=== PATIENT | female | born 1940 | race Caucasian/White ===

== ENCOUNTER → 2019-03-07 | Outpatient (CLI) | payer MEDICARE ==
[~2019-03-07] MED LIST: AMLO5TAB2 PO; BENA20TA2 PO; CHOL100084 PO; LVF500T PO; METF-144 PO; MTR500T PO; OMEP20CA12 PO; PRAV40TA PO; VITAMIN B12 PO
--- NOTE | 2019-03-07 09:30 | Diagnostic Imaging Report ---
Indication: Right hip pain. Time of exam 8:36 AM 2 views right hip are obtained. Femoral acetabular alignment is normal. There are some mild osteoarthritic changes of the right hip. Femoral head and neck are intact. No fractures are seen. Rami are intact. Impression: Mild degenerative changes. No acute bony abnormality is detected. Dictated by: Dictated on workstation # [id number]
== END ==
LOC: RAD 07:47
PROVIDERS: ATTEND Internal Medicine
DX: M16.11 Unilateral primary osteoarthritis, right hip (principal); R73.03 Prediabetes; E78.00 Pure hypercholesterolemia, unspecified; I10 Essential (primary) hypertension
CPT/HCPCS: 73502

== ENCOUNTER → 2019-06-11 | Outpatient (CLI) | payer MEDICARE ==
--- NOTE | 2019-06-11 15:29 | Diagnostic Imaging Report ---
PROCEDURE: MRI left joint lower extremity without contrast. TECHNIQUE: Multiplanar, multisequence non contrast-enhanced MRI of the left lower extremity was accomplished. INDICATION: Knee pain, popping. FINDINGS: There is intrasubstance degenerative signal involving the medial greater than lateral menisci without linear or linda tear. No meniscal separation. The anterior and posterior cruciate ligaments are intact. The patellar and quadriceps tendons are intact. There is a small knee joint effusion without loose body. There is tricompartmental osteoarthritis without full-thickness articular cartilage defect. The medial and lateral collateral ligament complex components crossing the knee joint are intact. There is no solid or cystic mass within the popliteal fossa. No bone contusion or fracture. IMPRESSION: Osteoarthritis, joint effusion, and meniscal degeneration. Dictated by: Dictated on workstation # [id number]
== END ==
LOC: RAD 07:45
PROVIDERS: ATTEND Nurse Practitioner Family
DX: M17.12 Unilateral primary osteoarthritis, left knee (principal); M25.462 Effusion, left knee; M25.362 Other instability, left knee
CPT/HCPCS: 73721

== ENCOUNTER → 2020-02-06 | Outpatient (CLI) | payer MEDICARE ==
--- NOTE | 2020-02-06 17:06 | Diagnostic Imaging Report ---
INDICATION: Fall with right wrist pain. TIME OF EXAM: 2:24 p.m. EXAMINATION: Three views of the right wrist were obtained. FINDINGS: There appears to be a fracture of the distal radius. Very slight dorsal displacement of the distal fracture fragment is seen. Distal ulna is intact. Carpus is unremarkable apart from degenerative changes at the 1st CMC joint. Metacarpals are unremarkable. IMPRESSION: Distal radius fracture. Results were given to Dr. Fitzgerald at 5:05 p.m., by wendie. Dictated by: Dictated on workstation # [id number]
== END ==
LOC: RAD 14:00
PROVIDERS: ATTEND Internal Medicine
DX: S52.501A Unspecified fracture of the lower end of right radius, initial encounter for closed fracture (principal); S50.311A Abrasion of right elbow, initial encounter; W19.XXXA Unspecified fall, initial encounter
CPT/HCPCS: 73110

== ENCOUNTER → 2020-06-23 | Outpatient (CLI) | payer MEDICARE | LOC: RAD 14:30 | PROVIDERS: ATTEND Internal Medicine | DX: M80.031 Age-related osteoporosis with current pathological fracture, right forearm (principal) ==

== ENCOUNTER → 2021-02-04 | Outpatient (CLI) | payer MEDICARE ==
--- NOTE | 2021-02-04 12:30 | Diagnostic Imaging Report ---
INDICATION: Lumbago. COMPARISON: None FINDINGS: Frontal, lateral, and oblique radiographic views of the lumbar spine were obtained. There is slight levoscoliotic deformity epicentered at L1. There is also slight grade 1 retrolisthesis at L2-L3. There is no evidence of jumped facets. Vertebral body heights are maintained. There is no evidence acute fracture. There are multilevel degenerative changes consistent with intervertebral disc height loss with endplate sclerotic change and osteophyte formations. These changes appear greatest at the T12-L1 and L5-S1 levels. Included small bowel loops are nondistended. IMPRESSION: 1. No acute fracture or dislocation in the lumbar spine. 2. Moderate multilevel degenerative changes. Dictated by: Dictated on workstation # [id number]
== END ==
LOC: RAD 12:03
PROVIDERS: ATTEND Internal Medicine
DX: M47.817 Spondylosis without myelopathy or radiculopathy, lumbosacral region (principal)
CPT/HCPCS: 72110

== ENCOUNTER 2022-08-04 12:33 | Emergency (ER) | payer MEDICARE ==
[2022-08-04] MEDS ORDERED: LIDOCAINE 1% INJ 20 ML VIAL IJ STA (12:57)
[2022-08-04] MEDS ORDERED: TETANUS,DIPTH,PERTUSS P/F (BOOSTRIX) 0.5 ML VIAL IM ONE (13:00)
--- NOTE | 2022-08-04 13:18 | ED Fall/Injury ---
General Chief Complaint: Laceration Stated Complaint: HEAD LACERATION Nursing Triage Note: PT TO RM 8 WITH AMY SANCHEZ AND FAMILY WITH C/O HEAD LAC AFTER MOVING A CHAIR OFF HER PORCH AND FALLING DOWN ONE STAIR AND HIT A WOODEN FENCE. PT DENIES LOC Source: patient Exam Limitations: no limitations History of Present Illness Date Seen by Provider: Aug 04, 2022 Time Seen by Provider: 12:40 Initial Comments Here with report of fall at home. She was walking down her steps and missed the last step and fell forward and hit her head on the picket fence. No loss of consciousness but did note bleeding. She then drove her self to her primary care doctor's office (Dr. Fitzgerald). Bleeding was fairly pronounced. Dr. Fitzgerald and his then drove the patient here while holding pressure on her head. She denies neck pain. Last tetanus shot greater than 5 years. She denies other injury or concern. She is not on blood thinners. Occurred: just prior to arrival (Approximately 30 minutes ago) Severity: moderate Injuries/Pain Location: head Context: tripped Loss of Consciousness: no loss of consciousness Associated Symptoms (Fall): No Abdominal Pain, No Chest Pain; Headache; No Muscle Spasms, No Neck Pain, No Shortness of Air, No Trouble Walking Allergies and Home Medications Allergies Coded Allergies: Sulfa (Sulfonamide Antibiotics) (Unverified Allergy, Unknown, 01/22/15) Patient Home Medication List Home Medication List Reviewed: Yes Amlodipine Besylate (Amlodipine Besylate) 5 Mg Tablet, 5 MG PO DAILY, (Reported) Entered as Reported by: SUE LUGO on 01/23/15 0908 Benazepril Hcl (Benazepril Hcl) 20 Mg Tablet, 20 MG PO DAILY, (Reported) Entered as Reported by: SUE LUGO on 01/23/15 0908 Cholecalciferol (Vitamin D) 1,000 Unit Tab, 1,000 UNIT PO DAILY, (Reported) Entered as Reported by: SUE LUGO on 01/23/15 0910 Levofloxacin (Levaquin Tablet) 500 Mg Tab, 500 MG PO DAILY@11 Prescribed by: MARCELO HOFF on 01/25/15 1144 Metformin Hcl (Metformin Hcl) 500 Mg Tab.sr.24h, 500 MG PO BID, (Reported) Entered as Reported by: SUE LUGO on 01/23/15907 Metronidazole (Metronidazole) 500 Mg Tab, 500 MG PO TID Prescribed by: MARCELO HOFF on 01/25/15 1144 Omeprazole (Omeprazole) 20 Mg Capsule.dr, 20 MG PO DAILY, (Reported) Entered as Reported by: SUE LUGO on 01/23/15907 Pravastatin Sodium (Pravachol) 40 Mg Tablet, 40 MG PO HS, (Reported) Entered as Reported by: SUE LUGO on 01/23/15907 [Vitamin B12] , 1 TAB PO HS, (Reported) Entered as Reported by: SUE LUGO on 01/23/15909 Review of Systems Review of Systems Constitutional: see HPI; No chills, No fever Ears, Nose, Mouth, Throat: no symptoms reported Respiratory: No cough, No short of breath Cardiovascular: No chest pain, No palpitations Gastrointestinal: No nausea, No vomiting Musculoskeletal: No back pain, No neck pain Skin: change in color, lesions Psychiatric/Neurological: No Symptoms Reported Past Gihmogf-Addzfb-Acfboh Hx Patient Social History Tobacco Use?: No Use of E-Cig and/or Vaping dev: No Substance use?: No Alcohol Use?: No Pt feels they are or have been: No Immunizations Up To Date Tetanus Booster (TDap): Unknown Influenza Vaccine Up-to-Date: Yes; Up-to-Date Past Medical History Surgery/Hospitalization HX: HTN, SPINAL STENOSIS, HLD Surgeries: Yes Bladder Surgery, Hysterectomy, Oophorectomy, Tubal Ligation Cardiac: Yes High Cholesterol, Hypertension Reproductive Disorders: No Gastrointestinal: Yes Diverticulosis Fractures Diabetes, Non-Insulin dep Family Medical History Reviewed Nursing Family Hx Colon cancer 19 MOTHER Diabetes mellitus 19 MOTHER Physical Exam Vital Signs Vital Signs - First Documented 08/04/22 12:40 Pulse 97 Resp 17 B/P (MAP) 179/92 (121) Capillary Refill : Height, Weight, BMI Height: 5'1.00" Weight: 145lbs. oz. 65.319262ek; BMI Method:Stated General Appearance: WD/WN, no apparent distress HEENT: PERRL/EOMI, pharynx normal Neck: non-tender, full range of motion, supple, normal inspection Cardiovascular: regular rate, rhythm, no murmur Respiratory: lungs clear, normal breath sounds Gastrointestinal: non tender, soft Back: normal inspection, no CVA tenderness, no vertebral tenderness Neurologic/Psychiatric: alert, normal mood/affect, oriented x 3 Skin: warm/dry, other (3 cm laceration horizontally situated to the midline posterior scalp with small arterial bleed noted after cleaning. Easily stopped with direct pressure superior to wound.) Derek Coma Score Best Eye Response: (4) Open Spontaneously Best Verbal Response: (5) Oriented Best Motor Response: (6) Obeys Commands Procedures/Interventions Wound Location: Scalp Other Wound Location Posterior midline horizontally Wound Length (cm): 3 Wound's Depth, Shape: superficial, linear Wound Explored: contaminated Irrigated w/ Saline (ccs): 100 Betadine Prep?: Yes Anesthesia: 1% Lidocaine Volume Anesthetic (ccs): 5 Wound Debrided: minimal Staple Repair: Stapler 35W Number of Sutures: 10 Layer Closure?: 1 Number Deep Layer Sutures: 0 Sterile Dressing Applied?: Yes Progress Wound cleaned and evaluated. Anesthetized with 1% lidocaine while holding pressure to stop arterial bleed. Wound cleaned with copious saline and chlorhexidine soap and rinsed with sterile saline. Wound closed with elizabeth and direct pressure maintained. Noted no bleeding after. Cover with antibiotic ointment and dressing. Tolerated procedure well with no complications. Progress/Results/Core Measures Results/Orders My Orders Orders - GEOVANY BERGERON MD Dipht,Mikey(Acell),Tet Adult (Boostrix (08/04/22 13:00) Ct Head Wo (08/04/22 12:57) Lidocaine 1% Inj 20 Ml (Xylocaine 1% Inj (08/04/22 12:57) Medications Given in ED Current Medications Medications Dose Ordered Sig/Reece Route Start Time Stop Time Status Last Admin Dose Admin Diphtheria/ Tetanus/Acell Pertussis 0.5 ml ONCE ONCE IM 08/04/22 13:00 08/04/22 13:01 DC 08/04/22 13:16 0.5 ML Vital Signs/I&O 08/04/22 12:40 Pulse 97 Resp 17 B/P (MAP) 179/92 (121) Blood Pressure Mean: 121 Progress Progress Note : Progress Note Seen and evaluated. Patient is wearing hairspray which complicate cleaning of the wound. We are ultimately able to clean the wound and noted some arterial bleeding as we exposed the laceration. This was able to be stopped with direct pressure. We went ahead and anesthetized and copiously cleaned and irrigated wound. It was then closed with skin stapler with excellent approximation and hemostasis. CT of the head was then ordered due to fall and age. This was discussed with the patient who agrees. We will also update tetanus. Monitor patient. 1348: CT head is negative for acute intracranial bleed. Bleeding remains stopped. Discharged home with return precautions. Patient and family verbalized understanding instructions and agreement with plan. Diagnostic Imaging Diagonstic Imaging: CT Plain Films/CT/US/NM/MRI: head Comments [facility] [place] [place] NAME: YAMEL QUINTANILLA [facility] REC#: [id number] PT STATUS: REG ER : 1940 PHYSICIAN: GEOVANY BERGERON MD ADMIT DATE: 08/04/22/ER Draft Date of Exam:08/04/22 CT HEAD WO INDICATION: Head injury. Laceration. TECHNIQUE: Routine non contrast-enhanced axial images were obtained from the skull base to the vertex. Auto Exposure Controls were utilized during the CT exam to meet ALARA standards for radiation dose reduction COMPARISON: None. FINDINGS: The ventricles and cortical sulci are diffusely prominent, compatible with age-related volume loss. There are confluent areas of abnormal, low attenuation in the periventricular white matter. This is consistent with small vessel ischemic changes; age-indeterminate. There is no prior study available for comparison. There is no midline shift or mass-effect. No acute intra-axial hemorrhage is seen. There are no abnormal areas of increased or decreased density to suggest acute hemorrhage or edema. No extra-axial masses or collections are present. The bony calvarium is intact. The visualized paranasal sinuses are unremarkable. The mastoid air cells are clear. IMPRESSION: 1. No acute intracranial abnormality. No CT evidence of mass, acute infarct or intracranial hemorrhage. 2. Small vessel ischemic changes in the periventricular and subcortical white matter; likely chronic. Dictated on workstation # [id number] Dict: 08/04/22 1334 Trans: 08/04/22 1339 [id number] [id number] Interpreted by: THANG FRANCO MD Electronically signed by: Departure Impression Primary Impression: Occipital scalp laceration Qualified Codes: S01.01XA - Laceration without foreign body of scalp, initial encounter Additional Impression: Head injury due to trauma Qualified Codes: S09.90XA - Unspecified injury of head, initial encounter Disposition: 01 HOME, SELF-CARE Condition: Stable Departure-Patient Inst. Decision time for Depature: 13:49 Referrals: WHITNEY FITZGERALD DO (PCP) Primary Care Physician Patient Instructions: Laceration Repair With [place] (DC), Concussion, Adult (DC) Add. Discharge Instructions: All discharge instructions reviewed with patient and/or family. Voiced u nderstanding. Elizabeth may come out in 7 days. You may do this here or at your doctor's office. You may gently wash the hair and pat the area dry over wound. Use antibiotic ointment over wound once or twice daily for the next 4 to 5 days and then as needed. You may use Tylenol/acetaminophen 1000 mg every 6 hours as needed for pain. Follow-up with your doctor for recheck and further evaluation as needed. Copy Copies To 1: WHITNEY FITZGERALD TIMOTHY D MD Aug 04, 2022 13:18
--- NOTE | 2022-08-04 13:40 | Diagnostic Imaging Report ---
INDICATION: Head injury. Laceration. TECHNIQUE: Routine non contrast-enhanced axial images were obtained from the skull base to the vertex. Auto Exposure Controls were utilized during the CT exam to meet ALARA standards for radiation dose reduction COMPARISON: None. FINDINGS: The ventricles and cortical sulci are diffusely prominent, compatible with age-related volume loss. There are confluent areas of abnormal, low attenuation in the periventricular white matter. This is consistent with small vessel ischemic changes; age-indeterminate. There is no prior study available for comparison. There is no midline shift or mass-effect. No acute intra-axial hemorrhage is seen. There are no abnormal areas of increased or decreased density to suggest acute hemorrhage or edema. No extra-axial masses or collections are present. The bony calvarium is intact. The visualized paranasal sinuses are unremarkable. The mastoid air cells are clear. IMPRESSION: 1. No acute intracranial abnormality. No CT evidence of mass, acute infarct or intracranial hemorrhage. 2. Small vessel ischemic changes in the periventricular and subcortical white matter; likely chronic. Dictated by: Dictated on workstation # [id number]
[2022-08-04 14:01] VITALS: BP 179/92
== END 2022-08-04 14:01 | disposition home or self-care (01) ==
LOC: EDUNIT# 12:33 → ER 12:35
DX: S09.90XA Unspecified injury of head, initial encounter (principal); S01.01XA Laceration without foreign body of scalp, initial encounter; Z23 Encounter for immunization; W10.9XXA Fall (on) (from) unspecified stairs and steps, initial encounter; Y93.01 Activity, walking, marching and hiking; Y92.009 Unspecified place in unspecified non-institutional (private) residence as the place of occurrence of the external cause
CPT/HCPCS: 70450; 90715

== ENCOUNTER 2022-08-12 07:31 | Emergency (ER) | payer MEDICARE ==
[2022-08-12 08:03] VITALS: BP 142/82
== END 2022-08-12 08:12 | disposition home or self-care (01) ==
LOC: EDUNIT# 07:31 → ER 07:34
DX: S01.01XD Laceration without foreign body of scalp, subsequent encounter (principal); X58.XXXD Exposure to other specified factors, subsequent encounter

== ENCOUNTER 2023-02-04 16:53 | Observation (INO) | payer MEDICARE ==
[~2023-02-04] VITALS: Ht 154 cm; Wt 66.6 kg
[2023-02-04] MEDS ORDERED: PIPERACILLIN SODIUM/TAZOBACTAM 4.5 GM in NS (IVPB) 100 ML IV ONE (17:45)
--- NOTE | 2023-02-04 17:51 | ED Integumentary General ---
General Chief Complaint: Skin/Wound Problems Stated Complaint: LEFT ARM Nursing Triage Note: PT HAD NOTICED A RED ADAN ON LT ELBOW LAST NIGHT, WAS SEEN IN [place] FOR IT 0900 THIS A.M. AND WAS PUT ON ABX. REDNESS WAS MARKED AND HAS EXTENDED Source: patient, family Exam Limitations: no limitations (MITCHELL ROSAS) History of Present Illness Date Seen by Provider: February 04, 2023 Time Seen by Provider: 17:47 Initial Comments Patient is a 82-year-old female who presents ED with redness and swelling to her left forearm. Started last night with a quarter size lesion. Woke up this morning with redness moving distally down the forearm and upper left arm. Patient was seen at a urgent care in [place]. Was placed on cephalexin and prednisone. She states since she marked the area of the redness and swelling has worsened. She has felt nauseous today with vomiting. Has not been wanting to eat. Low-grade temperature at home. She is diabetic. Denies history of CHF, COPD, coronary artery disease. She states she feels feverish. Denies diarrhea, abdominal pain, trauma, headache, dizziness (MITCHELL ROSAS) Allergies and Home Medications Allergies Coded Allergies: Sulfa (Sulfonamide Antibiotics) (Unverified Allergy, Unknown, 01/22/15) Patient Home Medication List Home Medication List Reviewed: Yes (MITCHELL ROSAS) Amlodipine Besylate (Amlodipine Besylate) 5 Mg Tablet, 5 MG PO DAILY, (Reported) Entered as Reported by: LATONYA HI on 02/06/231204 Last Action: Reviewed Amoxicillin/Potassium Clav (Amox Tr-K Clv 875-125 mg Tab) 875 Mg-125 Mg Tablet, 875 MG PO BID WITH MEALS Prescribed by: MONA REYES on 02/07/23 1124 Atorvastatin Calcium (Atorvastatin Calcium) 40 Mg Tablet, 40 MG PO DAILY, (Reported) Entered as Reported by: LATONYA HI on 02/06/231204 Last Action: Reviewed Benazepril HCl (Benazepril HCl) 20 Mg Tablet, 20 MG PO DAILY, (Reported) Entered as Reported by: LATONYA HI on 02/06/231204 Last Action: Reviewed Doxycycline Hyclate (Doxycycline Hyclate) 100 Mg Tablet, 100 MG PO BID WITH MEALS Prescribed by: MONA REYES on 02/07/23 1124 Metformin HCl (Metformin HCl ER) 500 Mg Tab.er.24h, 500 MG PO DAILY, (Reported) Entered as Reported by: LATONYA HI on 02/06/23 1205 Last Action: Reviewed Omeprazole (Omeprazole) 20 Mg Capsule.dr, 20 MG PO DAILY, (Reported) Entered as Reported by: LATONYA HI on 02/06/23 1205 Last Action: Reviewed Ropinirole HCl (Ropinirole HCl) 0.5 Mg Tablet, 0.5 MG PO HS, (Reported) Entered as Reported by: AN GUTIÉRREZ on 02/05/23 1029 Last Action: Reviewed Discontinued Medications Amlodipine Besylate (Amlodipine Besylate) 5 Mg Tablet, 5 MG PO DAILY, (Reported) Discontinued Reason: Duplicate Order Entered as Reported by: SUE LUGO on 01/23/15907 Last Action: Discontinued Benazepril Hcl (Benazepril Hcl) 20 Mg Tablet, 20 MG PO DAILY, (Reported) Discontinued Reason: Duplicate Order Entered as Reported by: SUE LUGO on 01/23/15907 Last Action: Discontinued Cephalexin (Cephalexin) 500 Mg Capsule, 500 MG PO TID, (Reported) Entered as Reported by: LATONYA HI on 02/06/23 1207 Last Action: Reviewed Cholecalciferol (Vitamin D) 1,000 Unit Tab, 1,000 UNIT PO DAILY, (Reported) Discontinued Reason: No Longer Taking Entered as Reported by: SUE LUGO on 01/23/15 09 Last Action: Discontinued Levofloxacin (Levaquin Tablet) 500 Mg Tab, 500 MG PO DAILY@11 Discontinued Reason: No Longer Taking Prescribed by: MARCELO HOFF on 01/25/151143 Last Action: Discontinued Metformin Hcl (Metformin Hcl) 500 Mg Tab.sr.24h, 500 MG PO DAILY, (Reported) Discontinued Reason: Duplicate Order Entered as Reported by: SUE LUGO on 01/23/15907 Last Action: Discontinued Metronidazole (Metronidazole) 500 Mg Tab, 500 MG PO TID Discontinued Reason: No Longer Taking Prescribed by: MARCELO HOFF on 01/25/15 114 Last Action: Discontinued Omeprazole (Omeprazole) 20 Mg Capsule.dr, 20 MG PO DAILY, (Reported) Discontinued Reason: Duplicate Order Entered as Reported by: SUE LUGO on 01/23/15907 Last Action: Discontinued Pravastatin Sodium (Pravachol) 40 Mg Tablet, 40 MG PO HS, (Reported) Discontinued Reason: Duplicate Order Entered as Reported by: SUE LUGO on 01/23/15907 Last Action: Discontinued Prednisone (Prednisone) 20 Mg Tab, 20 MG PO BID, (Reported) Entered as Reported by: LATONYA HI on 02/06/23 1211 Last Action: Reviewed [Vitamin B12] , 1 TAB PO HS, (Reported) Discontinued Reason: No Longer Taking Entered as Reported by: SUE LUGO on 01/23/15909 Last Action: Discontinued Review of Systems Review of Systems Constitutional: No chills, No diaphoresis; fever, malaise EENTM: No hearing loss, No ear pain, No double vision Respiratory: No cough, No dyspnea on exertion Cardiovascular: No chest pain Gastrointestinal: No abdominal pain, No nausea, No vomiting Genitourinary: No decreased output, No discharge Musculoskeletal: No back pain, No joint pain; muscle pain Skin: change in color; No change in hair/nails (MITCHELL ROSAS) Past Glhbaop-Gmtvdv-Bqdwnc Hx Patient Social History Tobacco Use?: No Substance use?: No Alcohol Use?: No (MITCHELL ROSAS) Immunizations Up To Date Tetanus Booster (TDap): Unknown Third COVID19 Vaccination Date: YES (MITCHELL ROSAS) Past Medical History Surgery/Hospitalization HX: HTN, SPINAL STENOSIS, HLD Surgeries: Yes Bladder Surgery, Hysterectomy, Oophorectomy, Tubal Ligation Cardiac: Yes High Cholesterol, Hypertension Reproductive Disorders: No Gastrointestinal: Yes Diverticulosis Fractures Diabetes, Non-Insulin dep (MITCHELL ROSAS) Family Medical History Colon cancer 19 MOTHER Diabetes mellitus 19 MOTHER Physical Exam Vital Signs Vital Signs - First Documented 02/04/23 17:21 Temp 37.6 Pulse 70 Resp 18 B/P (MAP) 156/77 (103) Pulse Ox 94 O2 Delivery Room Air Capillary Refill : Less Than 3 Seconds General Appearance: WD/WN, no apparent distress HEENT: PERRL/EOMI, normal ENT inspection, TMs normal, pharynx normal Neck: non-tender, full range of motion, supple Cardiovascular: regular rate, rhythm, no edema, no gallop, no JVD Respiratory: chest non-tender, lungs clear, normal breath sounds, no respiratory distress, no accessory muscle use Gastrointestinal: normal bowel sounds, non tender, soft, no organomegaly Back: normal inspection, no CVA tenderness Extremities: other (Normal active range of motion the left elbow, left wrist. 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 No fluctuant mass. Induration noted.) (MITCHELL ROSAS) Progress/Results/Core Measures Results/Orders Lab Results Laboratory Tests Test 02/04/23 18:00 Range/Units White Blood Count 23.1 H 4.3-11.0 10^3/uL Red Blood Count 5.36 H 3.80-5.11 10^6/uL Hemoglobin 16.6 H 11.5-16.0 g/dL Hematocrit 49 35-52 % Mean Corpuscular Volume 92 80-99 fL Mean Corpuscular Hemoglobin 31 25-34 pg Mean Corpuscular Hemoglobin Concent 34 32-36 g/dL Red Cell Distribution Width 14.0 10.0-14.5 % Platelet Count 402 H 130-400 10^3/uL Mean Platelet Volume 9.7 9.0-12.2 fL Immature Granulocyte % (Auto) 1 % Neutrophils (%) (Auto) 86 H 42-75 % Lymphocytes (%) (Auto) 6 L 12-44 % Monocytes (%) (Auto) 7 0-12 % Eosinophils (%) (Auto) 0 0-10 % Basophils (%) (Auto) 0 0-10 % Neutrophils # (Auto) 19.9 H 1.8-7.8 10^3/uL Lymphocytes # (Auto) 1.4 1.0-4.0 10^3/uL Monocytes # (Auto) 1.5 H 0.0-1.0 10^3/uL Eosinophils # (Auto) 0.0 0.0-0.3 10^3/uL Basophils # (Auto) 0.1 0.0-0.1 10^3/uL Immature Granulocyte # (Auto) 0.3 H 0.0-0.1 10^3/uL Neutrophils % (Manual) 81 % Lymphocytes % (Manual) 8 % Monocytes % (Manual) 4 % Band Neutrophils 7 % Platelet Estimate NORMAL Clumped Platelets OCCASIONAL Blood Morphology Comment NORMAL Prothrombin Time 13.8 12.2-14.7 SEC INR Comment 1.0 0.8-1.4 Activated Partial Thromboplast Time 28 24-35 SEC Sodium Level 136 135-145 MMOL/L Potassium Level 3.6 3.6-5.0 MMOL/L Chloride Level 100 98-107 MMOL/L Carbon Dioxide Level 19 L 21-32 MMOL/L Anion Gap 17 H 5-14 MMOL/L Blood Urea Nitrogen 21 H 7-18 MG/DL Creatinine 0.86 0.60-1.30 MG/DL Estimat Glomerular Filtration Rate 68 BUN/Creatinine Ratio 24 Glucose Level 194 H 70-105 MG/DL Lactic Acid Level 3.38 *H 0.50-2.00 MMOL/L Calcium Level 9.8 8.5-10.1 MG/DL Corrected Calcium 8.5-10.1 MG/DL Total Bilirubin 1.5 H 0.1-1.0 MG/DL Aspartate Amino Transf (AST/SGOT) 39 H 5-34 U/L Alanine Aminotransferase (ALT/SGPT) 85 H 0-55 U/L Alkaline Phosphatase 132 40-136 U/L C-Reactive Protein High Sensitivity 10.24 H 0.00-0.50 MG/DL Total Protein 7.8 6.4-8.2 GM/DL Albumin 4.7 H 3.2-4.5 GM/DL My Orders Orders - MITCHELL ROSAS Cbc With Automated Diff (02/04/23 17:45) Comprehensive Metabolic Panel (02/04/23 17:45) Hs C Reactive Protein (02/04/23 17:45) Iv/Invasive Line Insertion .IV INSERT (02/04/23 17:45) Blood Culture (02/04/23 17:45) Protime With Inr (02/04/23 17:45) Partial Thromboplastin Time (02/04/23 17:45) Ed Iv/Invasive Line Start (02/04/23 17:45) Lactic Acid Analyzer (02/04/23 17:45) Piperacillin Sodium/Tazobactam (Zosyn Vi (02/04/23 17:45) Manual Differential (02/04/23 18:00) Forearm, Left, 2 Views (02/04/23 18:16) Ns Iv 1000 Ml (Sodium Chloride 0.9%) (02/04/23 18:33) Vancomycin Injection (Vancomycin Injecti (02/04/23 18:45) Medications Given in ED Current Medications Medications Dose Ordered Sig/Reece Route Start Time Stop Time Status Last Admin Dose Admin Piperacillin Sod/ Tazobactam Sod 4.5 gm/Sodium Chloride 100 ml @ 200 mls/hr ONCE ONCE IV 02/04/23 17:45 02/04/23 18:14 DC 02/04/23 18:00 200 MLS/HR Vancomycin HCl 1000 mg/Sodium Chloride 250 ml @ 250 mls/hr ONCE ONCE IV 02/04/23 18:45 02/04/23 19:44 DC 02/04/23 18:54 250 MLS/HR Vital Signs/I&O 02/04/23 17:21 Temp 37.6 Pulse 70 Resp 18 B/P (MAP) 156/77 (103) Pulse Ox 94 O2 Delivery Room Air Blood Pressure Mean: 103 (MITCHELL ROSAS) Departure Communication (PCP) Patient is a 82-year-old female who presents ED with redness and swelling to her left proximal posterior forearm. Denies of any specific injury. Started with a quarter size lesion and has progressively worsened. Was seen at urgent care today given Keflex and has taken 2 doses and a dose of prednisone without much improvement. Nausea and vomiting today and has not been eating. She feels dehydrated. She is not tachycardic but did have a low-grade temperature 37.6 C. On exam no evidence of function mass. No evidence olecranon bursitis. No evidence of septic joint. Erythema noted proximal and distal of the left elbow. X-ray was ordered which did not show any evidence of fracture or foreign body. Started on Zosyn. Sepsis work-up was initiated. CBC showed white blood count of 23,000. Normal kidney function. Lactic acid 3.38. Started on a liter of fluid. Blood cultures pending. Patient did not meet SIRS criteria as only evidence is elevated white blood count. However she did have an elevated lactic acid 3.38. Concerning for early developing sepsis. Added vancomycin. Elevated CRP at 10. No evidence of fluctuant mass noted on exam. Recommend admission secondary to abnormal lab work and failed outpatient. Patient was discussed with Dr. Acosta hospitalist who agreed to accept patient. Supplement IV fluids. Tylenol for pain and fever. Surgery consult for further evaluation that may require I&D. (MITCHELL ROSAS) Impression Primary Impression: Cellulitis Disposition: ADMITTED INPATIENT Condition: Stable Admissions Decision to Admit Reason: Admit from ER (General) Decision to Admit/Date: February 04, 2023 Time/Decision to Admit Time: 18:51 (MITCHELL ROSAS) Departure-Patient Inst. Referrals: WHITNEY WEBB DO (PCP) Primary Care Physician Scripts Doxycycline Hyclate (Doxycycline Hyclate) 100 Mg Tablet 100 MG PO BID WITH MEALS for 10 Days, #20 TAB Prov: MONA REYES MD 02/07/23 Amoxicillin/Potassium Clav (Amox Tr-K Clv 875-125 mg Tab) 875 Mg-125 Mg Tablet 875 MG PO BID WITH MEALS for 10 Days, #20 TAB Prov: MONA REYES MD 02/07/23 ATTENDING PHYSICIAN NOTE: I was physically present as attending physician in the emergency department during the care of this patient, but I was not directly involved in the decision making or delivery of care for this patient. (DEBORAH SEARS MD) MITCHELL ROSAS February 04, 2023 17:51 DEBORAH SEARS MD February 10, 2023 00:16
[2023-02-04 18:10] LABS: BASOPHILS # (AUTO) 0.1 10^3/uL (0.0-0.1); BASOPHILS % (AUTO) 0 % (0-10); EOSINOPHILS % (AUTO) 0 % (0-10); HEMATOCRIT 49 % (35-52); HEMOGLOBIN 16.6 g/dL (11.5-16.0); LYMPHOCYTES # (AUTO) 1.4 10^3/uL (1.0-4.0); LYMPHOCYTES % (AUTO) 6 % (12-44); MEAN CORPUSCULAR HEMOGLOBIN 31 pg (25-34); MEAN CORPUSCULAR HGB CONC 34 g/dL (32-36); MEAN CORPUSCULAR VOLUME 92 fL (80-99); MEAN PLATELET VOLUME 9.7 fL (9.0-12.2); MONOCYTES # (AUTO) 1.5 10^3/uL (0.0-1.0); MONOCYTES % (AUTO) 7 % (0-12); NEUTROPHILS # (AUTO) 19.9 10^3/uL (1.8-7.8); NEUTROPHILS % (AUTO) 86 % (42-75); PLATELET COUNT 402 10^3/uL (130-400); WHITE BLOOD COUNT 23.1 10^3/uL (4.3-11.0)
[2023-02-04 18:20] LABS: ALBUMIN 4.7 GM/DL (3.2-4.5); CHLORIDE 100 MMOL/L (98-107); POTASSIUM 3.6 MMOL/L (3.6-5.0); SODIUM 136 MMOL/L (135-145)
[2023-02-04 18:22] LABS: CALCIUM 9.8 MG/DL (8.5-10.1); PROTHROMBIN TIME PATIENT 13.8 SEC (12.2-14.7)
[2023-02-04 18:23] LABS: GLUCOSE 194 MG/DL (70-105); TOTAL PROTEIN 7.8 GM/DL (6.4-8.2)
[2023-02-04 18:24] LABS: BILIRUBIN,TOTAL 1.5 MG/DL (0.1-1.0); CARBON DIOXIDE 19 MMOL/L (21-32)
[2023-02-04 18:26] LABS: ALKALINE PHOSPHATASE 132 U/L (40-136)
[2023-02-04 18:27] LABS: CREATININE SERUM 0.86 MG/DL (0.60-1.30); GFR ESTIMATED 68
[2023-02-04 18:28] LABS: BUN/CREATININE RATIO 24
[2023-02-04 18:29] LABS: ALANINE AMINOTRANSFERASE 85 U/L (0-55)
[2023-02-04 18:31] LABS: BAND NEUTROPHILS 7 %; LYMPHOCYTES % (MANUAL) 8 %; MONOCYTES % (MANUAL) 4 %; NEUTROPHILS % (MANUAL) 81 %; PLATELET CLUMPS OCCASIONAL
[2023-02-04 18:32] LABS: PLATELET ESTIMATE NORMAL; RBC MORPH NORMAL
[2023-02-04] MEDS ORDERED: NS IV 1000 ML 1,000 ML IV STA (18:33)
[2023-02-04] MEDS ORDERED: VANCOMYCIN INJECTION 1,000 MG in NS (IVPB) 250 ML IV ONE (18:45)
--- NOTE | 2023-02-04 18:54 | Diagnostic Imaging Report ---
INDICATION: Proximal forearm pain COMPARISON: None. FINDINGS: 2 views of the left forearm were obtained and show no fracture, dislocation or other acute bony abnormality. Joint spaces are well maintained throughout. The soft tissues appear unremarkable. No unexpected radiopaque foreign body is identified. IMPRESSION: Unremarkable radiographic exam of the left forearm. Dictated by: Dictated on workstation # [id number]
[2023-02-04 19:39] VITALS: BP 111/73
[2023-02-04] MEDS: NS IV 1000 ML 1,000 ML IV SCH ×2 (21:15→23:36)
[2023-02-04] MEDS ORDERED: ACETAMINOPHEN 325 MG TABLET PO PRN (21:15)
[2023-02-04 23:33] VITALS: BP 106/64
[2023-02-04] MEDS: PIPERACILLIN SODIUM/TAZOBACTAM 4.5 GM in NS (IVPB) 100 ML IV SCH (23:37)
[2023-02-05 04:00] VITALS: BP 99/60
[2023-02-05 05:32] LABS: BASOPHILS # (AUTO) 0.1 10^3/uL (0.0-0.1); BASOPHILS % (AUTO) 0 % (0-10); EOSINOPHILS % (AUTO) 0 % (0-10); HEMATOCRIT 37 % (35-52); HEMOGLOBIN 12.4 g/dL (11.5-16.0); LYMPHOCYTES # (AUTO) 2.1 10^3/uL (1.0-4.0); LYMPHOCYTES % (AUTO) 15 % (12-44); MEAN CORPUSCULAR HEMOGLOBIN 31 pg (25-34); MEAN CORPUSCULAR HGB CONC 34 g/dL (32-36); MEAN CORPUSCULAR VOLUME 91 fL (80-99); MEAN PLATELET VOLUME 9.7 fL (9.0-12.2); MONOCYTES # (AUTO) 1.6 10^3/uL (0.0-1.0); MONOCYTES % (AUTO) 11 % (0-12); NEUTROPHILS # (AUTO) 10.1 10^3/uL (1.8-7.8); NEUTROPHILS % (AUTO) 73 % (42-75); PLATELET COUNT 272 10^3/uL (130-400); WHITE BLOOD COUNT 13.9 10^3/uL (4.3-11.0)
[2023-02-05 05:41] LABS: POTASSIUM 3.2 MMOL/L (3.6-5.0)
[2023-02-05 05:42] LABS: CALCIUM 8.3 MG/DL (8.5-10.1)
[2023-02-05 05:46] LABS: CREATININE SERUM 0.67 MG/DL (0.60-1.30)
[2023-02-05 07:50] VITALS: BP 146/79
[2023-02-05] MEDS: VANCOMYCIN 750 MG/NS 250 ML IVPB IV SCH ×4 (08:07→18:49)
[2023-02-05] MEDS: PIPERACILLIN SODIUM/TAZOBACTAM 4.5 GM in NS (IVPB) 100 ML IV SCH ×2 (08:08→16:28)
[2023-02-05] MEDS: NS IV 1000 ML 1,000 ML IV SCH ×2 (10:14→21:31)
--- NOTE | 2023-02-05 10:21 | CONSULTATION REPORT ---
DATE OF SERVICE: 02/05/2023 ATTENDING PRIMARY CARE PHYSICIAN: Dr. Luciano Fitzgerald. HISTORY OF PRESENT ILLNESS: The patient is an 82-year-old female, who was seen in consultation with Dr. Smith. She reports that she initially presented to [facility] in the morning yesterday. She reports that the night prior, she started noticing a slight redness of the left forearm as well as swelling about the size of a quarter. She reports that when she woke up the following morning that the redness had spread and that this was burning. She was then seen at urgent care in [place] and was placed on Keflex as well as prednisone. She reports that throughout the day, this continued with worsening swelling as well as redness. She reports that she is diabetic and denied any fever or chills. She reports that due to the continued redness and swelling, she then presented to [facility] Emergency Department and underwent further workup and was found to have a leukocytosis of 23,000. She also underwent an x-ray of the left forearm; however, this was unremarkable. Upon further questioning, she denied any injuries or bites. She denied any other issues. PAST MEDICAL HISTORY: Type 2 diabetes, hypertension, hypercholesterolemia, gastroesophageal reflux disease, spinal stenosis, diverticulosis. PAST SURGICAL HISTORY: Tubal ligation, complete hysterectomy, bladder surgery. ALLERGIES: SULFA. MEDICATIONS: Amlodipine 5 mg daily, benazepril 20 mg daily, vitamin D daily, metformin 500 mg daily, omeprazole 20 mg daily, pravastatin 40 mg at bedtime, vitamin B12 at bedtime. SOCIAL HISTORY: Negative for tobacco smoke. Negative for alcohol. FAMILY HISTORY: Noncontributory. VITAL SIGNS: Temperature 36.7 degrees Celsius, pulse 87, respirations 18, blood pressure is 146/79, pulse ox 94% on room air. REVIEW OF SYSTEMS: This is a well-nourished female, in no acute distress. She is not experiencing any shortness of breath or difficulty breathing. No chest pain, palpitations or diaphoresis. No nausea, vomiting or abdominal pain. No diarrhea or constipation. No red blood per rectum. No dark tarry stools. No fever or chills. No recent inadvertent weight loss. All other review of systems negative. PHYSICAL EXAMINATION: CHEST: Clear. Good breath sounds bilaterally. HEART: Regular. No murmurs. EXTREMITIES: No lower extremity edema. Negative Homans sign. HEENT: No scleral icterus. LYMPHATICS: No [ ] lymphadenopathy. ABDOMEN: Soft, nontender, nondistended. SKIN: There is some mild redness and erythema as well as swelling noted along the left posterior proximal forearm that does extend towards the anterior forearm as well as around the anterior and posterior elbow. This is tender to palpation and slightly warm, but there is no fluctuance noted to indicate any abscess. NEUROLOGIC: She is awake, alert and oriented x3. ASSESSMENT AND PLAN: An 82-year-old female with cellulitis of the left forearm. At this time, we will continue with IV antibiotics as well as pain medication as needed as well as Tylenol for any pain or fever. Her lab work this morning did show a decrease in her white count from 23,000 down to 13,000. We will continue to monitor her laboratory work. If this does persist and does not improve, then she may benefit from an incision and drainage; however, may need an ultrasound of the left forearm first to further rule out any abscess. Job ID: [id number] DocumentID: [id number] Dictated Date: 02/05/2023 09:20:14 Metal Stud Framer Date: 02/05/2023 10:19:00 Dictated By: ADRIANA SELBY APRN
[2023-02-05] MEDS ORDERED: ROPI0.5T4 PO (10:29)
[2023-02-05] MEDS ORDERED: HYDROcodone/APAP 7.5 MG/325 MG (LORTAB, LORCET PLUS) TABLET PO PRN (11:00)
[2023-02-05] MEDS ORDERED: KCL 20 MEQ TAB (K-DUR) PO NR (12:00)
--- NOTE | 2023-02-05 12:03 | History & Physical-Hospitalist ---
History of Present Illness HPI/Chief Complaint Patient is a 82-year-old female who presented to the emergency department due to left forearm pain and swelling. She states that it started 2 nights ago and she thought that she was bit by something and over the next couple of days it continued to worsen. She was seen at the [place] urgent care yesterday where the erythema was demarcated. She was started on antibiotics but despite this it continued to worsen. This prompted her to seek evaluation in the emergency department where she was found to have a worsening leukocytosis as well. Decision was made to admit for IV antibiotics. This morning her l eukocytosis is much better and her temperature is down but she states her swelling is still persistent. She denies any difficulty in moving her elbow though states the whole area is sore. Despite this she can flex her elbow and extend it without limitation. Source: patient Date Seen 02/05/23 Time Seen by a Provider: 11:52 Attending Physician Luciano Fitzgerald DO PCP Admitting Physician: Star Mckenzie MD Attending Physician: Star Mckenzie MD Referring Physician Date of Admission February 04, 2023 at 19:16 Home Medications & Allergies Home Medications Reviewed patient Home Medication Reconciliation performed by pharmacy medication reconciliations highway maintenance technician and/or nursing. Patients Allergies have been reviewed. Allergies Allergies Coded Allergies Sulfa (Sulfonamide Antibiotics) (Unverified Allergy, Unknown, 01/22/15) Past Ltblvlx-Gmqbdi-Pkomco Hx Patient Social History Employed/Student: retired Tobacco Use?: Yes Smoking Status: Never a Smoker Smokeless Tobacco Frequency: Never a User Use of E-Cig and/or Vaping dev: No Substance use?: No Alcohol Use?: No Pt feels they are or have been: No Immunizations Up To Date Date of Influenza Vaccine: Jun 18, 2014 Tetanus Booster (TDap): Unknown Date of Pneumonia Vaccine: January 16, 2013 Current Status Advance Directives: No Communicates: Verbally Primary Language: Portuguese Preferred Spoken Language: Portuguese Is interpretation needed?: No Sensory deficits: Vision impairment Implanted or Applied Medical D: None Past Medical History Surgeries: Bladder Surgery, Hysterectomy, Oophorectomy, Tubal Ligation High Cholesterol, Hypertension Diverticulosis Fractures Diabetes, Non-Insulin dep Family Medical History Colon cancer 19 MOTHER Diabetes mellitus 19 MOTHER Review of Systems Constitutional: see HPI Physical Exam Physical Exam Vital Signs Vital Signs - First Documented 02/04/23 17:21 Temp 37.6 Pulse 70 Resp 18 B/P (MAP) 156/77 (103) Pulse Ox 94 O2 Delivery Room Air Capillary Refill : Less Than 3 Seconds Height, Weight, BMI Height: 5'1.00" Weight: 145lbs. oz. 65.229396az; 28.08 BMI Method:Stated General Appearance: No Apparent Distress, WD/WN Respiratory: Lungs Clear, No Respiratory Distress Cardiovascular: Regular Rate, Rhythm, No Murmur Gastrointestinal: Normal Bowel Sounds, Non Tender, Soft Extremity: No Calf Tenderness, No Pedal Edema, Other (left forearm with erythema extending the dermarcation and mild edema and warmth, normal ROM or elbow) Neurologic/Psychiatric: Alert, Oriented x3 Results Results/Procedures Labs Laboratory Tests 02/04/23 18:00 02/05/23 05:20 Patient resulted labs reviewed. Imaging: Reviewed Imaging Report Imaging [facility] [place], [place] NAME: YAMEL QUINTANILLA [facility] REC#: [id number] PT STATUS: ADM Romina : 1940 PHYSICIAN: MITCHELL ROSAS ADMIT DATE: 02/04/23 Signed Date of Exam:02/04/23 FOREARM, LEFT, 2 VIEWS INDICATION: Proximal forearm pain COMPARISON: None. FINDINGS: 2 views of the left forearm were obtained and show no fracture, dislocation or other acute bony abnormality. Joint spaces are well maintained throughout. The soft tissues appear unremarkable. No unexpected radiopaque foreign body is identified. IMPRESSION: Unremarkable radiographic exam of the left forearm. Dictated by: Dictated on workstation # [id number] Dict: 02/04/231851 Trans: 02/04/231944 [facility] [id number] Interpreted by: THANG FRANCO MD Electronically signed by: THANG FRANCO MD 02/04/231944 Assessment/Plan Admission Diagnosis Cellulitis Admission Status: Inpatient Order (span 2 midnights) Reason for Inpatient Admission: see below Assessment and Plan Severe Sepsis (POA) due to Cellulitis transaminitis Failed outpatient management and progress rapidly Continue IV abx Await cultures Surgery consulted, appreciate recs Check CMP in AM HTN NIDDMII Restless leg syndrome HLD Continue home meds DVT ppx: Lovenox Diagnosis/Problems Diagnosis/Problems (1) Essential (primary) hypertension (2) Hypokalemia (3) HLD (hyperlipidemia) (4) Non-insulin dependent type 2 diabetes mellitus (5) Severe sepsis (6) Prophylactic measure (7) Cellulitis Status: Acute STAR MCKENZIE MD February 05, 2023 12:03
[2023-02-05 12:09] VITALS: BP 144/79
[2023-02-05] MEDS: fentaNYL INJ 100 MCG/2 ML AMP IVP PRN (12:21)
[2023-02-05] MEDS ORDERED: PATIENT MAY USE OWN MEDS, ALL MC SCH (12:30)
[2023-02-05] MEDS: ENOXAPARIN 40 MG/0.4 ML (LOVENOX) SYR SQ SCH (12:44)
[2023-02-05] MEDS ORDERED: VANCOMYCIN 1250MG/250ML PREMIX 250 ML IV SCH (13:00)
[2023-02-05 15:48] VITALS: BP 120/63
[2023-02-05 20:12] VITALS: BP 118/57
[2023-02-05] MEDS: ROPINIROLE 0.5MG TABLET PO SCH (20:15)
[2023-02-05] MEDS ORDERED: NON-FORMULARY MEDICATION 1 EA EA (Pravastatin Sodium (Pravachol) 40 MG) PO SCH (21:00)
[2023-02-06] VITALS (7 sets, daily range): BP systolic 107–131; BP diastolic 57–79
[2023-02-06] MEDS: PIPERACILLIN SODIUM/TAZOBACTAM 4.5 GM in NS (IVPB) 100 ML IV SCH ×4 (00:56→23:02)
[2023-02-06 05:38] LABS: HEMATOCRIT 35 % (35-52); HEMOGLOBIN 11.6 g/dL (11.5-16.0); MEAN CORPUSCULAR HEMOGLOBIN 31 pg (25-34); MEAN CORPUSCULAR HGB CONC 33 g/dL (32-36); MEAN CORPUSCULAR VOLUME 93 fL (80-99); MEAN PLATELET VOLUME 9.8 fL (9.0-12.2); PLATELET COUNT 262 10^3/uL (130-400)
[2023-02-06 05:54] LABS: ALBUMIN 2.8 GM/DL (3.2-4.5); POTASSIUM 3.7 MMOL/L (3.6-5.0)
[2023-02-06 05:57] LABS: TOTAL PROTEIN 4.8 GM/DL (6.4-8.2)
[2023-02-06 05:59] LABS: BILIRUBIN,TOTAL 1.3 MG/DL (0.1-1.0)
[2023-02-06 06:00] LABS: CREATININE SERUM 0.68 MG/DL (0.60-1.30)
[2023-02-06] MEDS ORDERED: TROUGH ORDER-PHARMACY XX ONE (06:00)
[2023-02-06 06:04] LABS: MAGNESIUM 1.6 MG/DL (1.6-2.4)
[2023-02-06 06:10] LABS: VANCOMYCIN,TROUGH 9.3 UG/ML (10.0-20.0)
[2023-02-06] MEDS: VANCOMYCIN 750 MG/NS 250 ML IVPB IV SCH ×4 (06:20→18:25)
[2023-02-06] MEDS: metFORMIN XR 500 MG (GLUCOPHAGE XR) TAB PO SCH (08:42)
[2023-02-06] MEDS: [UNRECOGNIZED DRUG - REMARK] PO SCH (08:42)
[2023-02-06] MEDS: [UNRECOGNIZED DRUG - REMARK] PO SCH (08:42)
[2023-02-06] MEDS: amLODIPine 5 MG (NORVASC) TAB PO SCH (08:43)
[2023-02-06] MEDS: NS IV 1000 ML 1,000 ML IV SCH (08:44)
[2023-02-06] MEDS ORDERED: metFORMIN XR 500 MG (GLUCOPHAGE XR) TAB PO SCH (09:00)
[2023-02-06] MEDS ORDERED: PANTOPRAZOLE 20 MG TABLET (PROTONIX) PO SCH (09:00)
[2023-02-06] MEDS ORDERED: lisINopril 20 MG (PRINIVIL) TABLET PO SCH (09:00)
[2023-02-06] MEDS ORDERED: OMEP20CA18 PO (12:05)
[2023-02-06] MEDS ORDERED: BENA-3 PO (12:05)
[2023-02-06] MEDS ORDERED: AMLO-250 PO (12:05)
[2023-02-06] MEDS ORDERED: ATOR40TA70 PO (12:05)
[2023-02-06] MEDS ORDERED: METF-865 PO (12:05)
[2023-02-06] MEDS: ENOXAPARIN 40 MG/0.4 ML (LOVENOX) SYR SQ SCH (12:06)
[2023-02-06] MEDS ORDERED: CEPH500C PO (12:07)
[2023-02-06] MEDS ORDERED: PRD20T PO (12:11)
--- NOTE | 2023-02-06 13:48 | Progress Note - Hospitalist ---
[facility] 02/06/23 1348: Subjective HPI/CC On Admission Patient is a 82-year-old female who presented to the emergency department due to left forearm pain and swelling. She states that it started 2 nights ago and she thought that she was bit by something and over the next couple of days it continued to worsen. She was seen at the [place] urgent care 02/03 where the erythema was demarcated. She was started on antibiotics but despite this it continued to worsen. This prompted her to seek evaluation in the emergency department where she was found to have a worsening leukocytosis as well. Decision was made to admit for IV antibiotics. Leukocytosis much better and her temperature was down. No difficulty in moving her elbow though states the whole area is sore. Despite this she can flex her elbow and extend it without limitation. Subjective/Events-last exam Today patient reports she is still having pain in the left arm, especially on the back side of the elbow. Improved with ice and pain medication. Still with warmth and redness that continues to spread. Pt denies any feelings of night sweats, chills or fevers. She has not had nausea or vomiting since monday. Her daughter is at bedside. Review of Systems General: No Chills, No Night Sweats Pulmonary: No Dyspnea, No Cough Cardiovascular: No: Chest Pain, Palpitations Gastrointestinal: No: Nausea, Vomiting, Abdominal Pain Genitourinary: No Dysuria, No Frequency Musculoskeletal: arm pain (left) Focused Exam Lactate Level 02/04/23 18:00: Lactic Acid Level 3.38*H 02/04/23 20:00: Lactic Acid Level 1.55 Objective Exam Vital Signs Vital Signs Date Time Temp Pulse Resp B/P (MAP) Pulse Ox O2 Delivery O2 Flow Rate FiO2 02/06/23 11:56 36.7 70 18 107/60 (76) 94 Room Air Capillary Refill : Less Than 3 Seconds General Appearance: No Apparent Distress, WD/WN HEENT: PERRL/EOMI, Moist Mucous Membranes Neck: Full Range of Motion, Normal Inspection Respiratory: Chest Non Tender, Lungs Clear, Normal Breath Sounds, No Respi ratory Distress Cardiovascular: Regular Rate, Rhythm, No Murmur, Normal Peripheral Pulses Gastrointestinal: Non Tender, Soft Extremity: Normal Capillary Refill, Other (left forearm with erythema extending the demarcation, mild edema and warmth, normal ROM of elbow; firm area on posterior left forearm) Neurologic/Psychiatric: Alert, Normal Mood/Affect Skin: Warm/Dry Results/Procedures Lab Laboratory Tests 02/06/23 05:20 Patient resulted labs reviewed. Imaging: Reviewed Imaging Report Assessment/Plan Assessment and Plan Assess & Plan/Chief Complaint Cellulitis left forearm Transaminitis Failed outpatient management and progressed rapidly Continue IV abx, increase vancomycin given low trough level Await cultures Surgery following U/S ordered to assess for area to drain Continue to monitor CMP HTN NIDDMII Restless leg syndrome HLD Continue home meds DVT ppx: Lovenox MONA REYES MD 02/06/23 1659: Subjective HPI/CC On Admission Date Seen by Provider: February 06, 2023 Time Seen by Provider: 11:55 Assessment/Plan Assessment and Plan Assess & Plan/Chief Complaint Continue antibiotics for cellulitis. Obtain ultrasound to evaluate for possible abscess. Surgery following. Diagnosis/Problems Diagnosis/Problems (1) Severe sepsis Status: Resolved Resolution Date/Time: 02/06/23 @ 16:57 (2) Cellulitis Status: Acute Qualifiers: (3) Elevated LFTs Status: Acute (4) Essential (primary) hypertension Status: Chronic (5) Non-insulin dependent type 2 diabetes mellitus Status: Chronic (6) HLD (hyperlipidemia) Status: Chronic (7) RLS (restless legs syndrome) Status: Chronic (8) Lactic acidosis Status: Resolved Resolution Date/Time: 02/06/23 @ 16:58 Supervisory-Addendum Brief Verification & Attestation Participated in pt care: history, MDM, physical Personally performed: exam, history, MDM, supervision of care Care discussed with: Medical Student Procedures: n/a A medical student performed and documented this service in my presence. I reviewed and verified all information documented by the medical student and made modifications to such information, when appropriate. I personally performed the physical exam and medical decision making. PHYLICIA TYLER February 06, 2023 13:48 MONA REYES MD February 06, 2023 16:59
[2023-02-06] MEDS: fentaNYL INJ 100 MCG/2 ML AMP IVP PRN (14:06)
--- NOTE | 2023-02-06 16:08 | Diagnostic Imaging Report ---
INDICATION: Left arm redness just below the elbow. Sonographic interrogation of the area of redness was performed. There is some heterogeneity to the subcutaneous tissues at the area of redness, but no discrete fluid collection or abscess is identified. IMPRESSION: Soft tissue heterogeneity, perhaps on the basis of cellulitis. No discrete fluid collection or abscess is detected. Dictated by: Dictated on workstation # [id number]
[2023-02-06] MEDS ORDERED: ONDANSETRON 4 MG/2 ML (SDV) Z0FRAN IVP PRN (19:15)
[2023-02-06] MEDS: ROPINIROLE 0.5MG TABLET PO SCH (19:26)
--- NOTE | 2023-02-06 20:10 | Progress Note ---
Subjective Date Seen by a Provider: February 06, 2023 Time Seen by a Provider: 19:00 Subjective/Events-last exam Patient seen with Dr. Smith. Patient reports doing ok but left arm hurts. Denies any fevers/chills. No nausea or vomiting. Tolerating diet. Patient reports that she has only been taking IV pain meds. Focused Exam Lactate Level 02/04/23 18:00: Lactic Acid Level 3.38*H 02/04/23 20:00: Lactic Acid Level 1.55 Objective Exam Vital Signs Date Time Temp Pulse Resp B/P (MAP) Pulse Ox O2 Delivery O2 Flow Rate FiO2 02/06/23 19:28 38.0 99 20 130/74 (92) 92 Room Air 02/06/23 16:14 36.8 79 17 127/73 (91) 93 Room Air 02/06/23 11:56 36.7 70 18 107/60 (76) 94 Room Air 02/06/23 08:00 Room Air 02/06/23 07:58 36.6 72 18 121/65 (83) 93 Room Air 02/06/23 03:24 36.4 77 18 131/79 (96) 93 Room Air 02/06/23 00:57 36.4 80 18 109/62 (78) 93 Room Air 02/05/23 20:12 36.8 80 18 118/57 (77) 93 Room Air I & O 02/06/23 07:00 Intake Total 1520 ml Balance 1520 ml Capillary Refill : Less Than 3 Seconds General Appearance: No Apparent Distress, WD/WN Neck: Normal Inspection, Supple Respiratory: No Accessory Muscle Use, No Respiratory Distress Gastrointestinal: normal bowel sounds, non tender, soft Extremity: Other (Left posterior forearm redness/erythema with an area of swelling just distal to elbow that is tender to palpation. No abscess palpable. Redness/erythema improved from previous day.) Neurologic/Psychiatric: Alert, Oriented x3 Skin: Normal Color, Warm/Dry Results Lab Laboratory Tests 02/06/23 05:20: White Blood Count 11.0, Red Blood Count 3.78L, Hemoglobin 11.6, Hematocrit 35, Mean Corpuscular Volume 93, Mean Corpuscular Hemoglobin 31, Mean Corpuscular Hemoglobin Concent 33, Red Cell Distribution Width 14.1, Platelet Count 262, Mean Platelet Volume 9.8, Sodium Level 138, Potassium Level 3.7, Chloride Level 111H, Carbon Dioxide Level 20L, Anion Gap 7, Blood Urea Nitrogen 13, Creatinine 0.68, Estimat Glomerular Filtration Rate 87, BUN/Creatinine Ratio 19, Glucose Level 123H, Calcium Level 8.0L, Corrected Calcium 9.0, Magnesium Level 1.6, Total Bilirubin 1.3H, Aspartate Amino Transf (AST/SGOT) 44H, Alanine Aminotransferase (ALT/SGPT) 96H, Alkaline Phosphatase 91, Total Protein 4.8L, Albumin 2.8L, Vancomycin Level Trough 9.3L Microbiology 02/04/23 Blood Culture - Preliminary, Resulted No growth Assessment/Plan Assessment/Plan Assess & Plan/Chief Complaint An 82 year old female with cellulitis of the left upper extremity VSS U/S of left forearm done with no abscess identified WBC 11.0 Continue with IV abx Encouraged oral pain meds Nausea meds as needed ADRIANA SELBY APRN February 06, 2023 20:10
[2023-02-07] MEDS: NS IV 1000 ML 1,000 ML IV SCH ×2 (03:03→08:49)
[2023-02-07 05:24] LABS: HEMATOCRIT 34 % (35-52); HEMOGLOBIN 11.2 g/dL (11.5-16.0); MEAN CORPUSCULAR HEMOGLOBIN 31 pg (25-34); MEAN CORPUSCULAR HGB CONC 33 g/dL (32-36); MEAN CORPUSCULAR VOLUME 93 fL (80-99); MEAN PLATELET VOLUME 9.7 fL (9.0-12.2); PLATELET COUNT 267 10^3/uL (130-400); WHITE BLOOD COUNT 9.8 10^3/uL (4.3-11.0)
[2023-02-07 05:47] LABS: CALCIUM 7.9 MG/DL (8.5-10.1); CREATININE SERUM 0.62 MG/DL (0.60-1.30); MAGNESIUM 1.5 MG/DL (1.6-2.4); POTASSIUM 3.5 MMOL/L (3.6-5.0)
[2023-02-07] MEDS: VANCOMYCIN 750 MG/NS 250 ML IVPB IV SCH ×2 (05:54)
[2023-02-07 07:18] VITALS: BP 127/64
[2023-02-07] MEDS: PIPERACILLIN SODIUM/TAZOBACTAM 4.5 GM in NS (IVPB) 100 ML IV SCH (08:39)
[2023-02-07] MEDS: amLODIPine 5 MG (NORVASC) TAB PO SCH ×2 (08:40→08:48)
[2023-02-07] MEDS: metFORMIN XR 500 MG (GLUCOPHAGE XR) TAB PO SCH (08:40)
[2023-02-07] MEDS: [UNRECOGNIZED DRUG - REMARK] PO SCH (08:41)
[2023-02-07] MEDS: [UNRECOGNIZED DRUG - REMARK] PO SCH (08:41)
[2023-02-07] MEDS ORDERED: AMOX1TAB12 PO (11:24)
[2023-02-07] MEDS ORDERED: DOXY100T2 PO (11:24)
[2023-02-07] MEDS ORDERED: DOXYCYCLINE 100 MG (VIBRAMYCIN) TABLET PO SCH (11:30)
[2023-02-07] MEDS ORDERED: AUGMENTIN 875 MG TAB (AMOXICILLIN/CLAVULANATE) PO SCH (11:30)
--- NOTE | 2023-02-07 11:59 | Discharge Summary ---
[facility] 02/07/23 1159: Diagnosis/Chief Complaint Date of Admission February 04, 2023 at 19:16 Date of Discharge Discharge Date: February 07, 2023 Admission Diagnosis Cellulitis Primary Care Luciano Fitzgerald DO Discharge Diagnosis Cellulitis (1) Severe sepsis Status: Resolved (2) Cellulitis Status: Acute Assessment & Plan: Improved with IV abx U/s without abscess Transition to oral antibiotics - doxycycline and augmentin Oral pain control - lortab Pt will f/u with PCP later this week Discussed she should return to ER with worsening symptoms (3) Elevated LFTs Status: Acute (4) Essential (primary) hypertension Status: Chronic (5) Non-insulin dependent type 2 diabetes mellitus Status: Chronic (6) HLD (hyperlipidemia) Status: Chronic (7) RLS (restless legs syndrome) Status: Chronic (8) Lactic acidosis Status: Resolved Discharge Summary Discharge Physical Exam Allergies: Coded Allergies: Sulfa (Sulfonamide Antibiotics) (Unverified Allergy, Unknown, 01/22/15) Vitals & I&Os Vital Signs Date Time Temp Pulse Resp B/P (MAP) Pulse Ox O2 Delivery O2 Flow Rate FiO2 02/07/23 08:30 Room Air 02/07/23 07:18 36.3 67 18 127/64 (85) 94 General Appearance: No Apparent Distress, WD/WN HEENT: PERRL/EOMI, Pharynx Normal, Moist Mucous Membranes Respiratory: Lungs Clear, Normal Breath Sounds Cardiovascular: Regular Rate, Rhythm, No Murmur, Normal Peripheral Pulses Gastrointestinal: Normal Bowel Sounds, Non Tender, Soft Extremity: Normal Capillary Refill, Non Tender, No Pedal Edema Skin: Warm/Dry, Other (left forearm with erythema improved-no longer extending beyond demarcation, minimal edema and warmth-improved, normal ROM of elbow; firm area on posterior left forearm less tender) Neurologic/Psychiatric: Alert, Normal Mood/Affect Hospital Course Was the Problem List Reviewed?: Yes Patient is an 82-year-old female who presented to the emergency department on 02/04 due to left forearm pain and swelling for 2 days. She thought that she was bit by something but never found a wound and over the next couple of days it continued to worsen. Pt also had pain with ROM though able to move fully. She was seen at the [place] urgent care 02/03 where the erythema was demarcated. She was started on antibiotics but despite this it continued to worsen. This prompted her to seek evaluation in the emergency department where she was found to have a worsening leukocytosis as well. Decision was made to admit for IV antibiotics. Leukocytosis improved. U/s of left UE without abscess. Erythema and pain improved 02/07 with no pain on ROM. Labs (last 24 hrs) Laboratory Tests 02/07/23 05:08: White Blood Count 9.8, Red Blood Count 3.63L, Hemoglobin 11.2L, Hematocrit 34L, Mean Corpuscular Volume 93, Mean Corpuscular Hemoglobin 31, Mean Corpuscular Hemoglobin Concent 33, Red Cell Distribution Width 13.8, Platelet Count 267, Mean Platelet Volume 9.7, Sodium Level 137, Potassium Level 3.5L, Chloride Level 108H, Carbon Dioxide Level 22, Anion Gap 7, Blood Urea Nitrogen 8, Creatinine 0.62, Estimat Glomerular Filtration Rate 89, BUN/Creatinine Ratio 13, Glucose Level 118H, Calcium Level 7.9L, Magnesium Level 1.5L Microbiology 02/04/23 Blood Culture - Preliminary, Resulted No growth Patient resulted labs reviewed. Pending Labs Laboratory Tests 02/07/23 05:08: White Blood Count 9.8, Red Blood Count 3.63, Hemoglobin 11.2, Hematocrit 34, Mean Corpuscular Volume 93, Mean Corpuscular Hemoglobin 31, Mean Corpuscular Hemoglobin Concent 33, Red Cell Distribution Width 13.8, Platelet Count 267, Mean Platelet Volume 9.7, Sodium Level 137, Potassium Level 3.5, Chloride Level 108, Carbon Dioxide Level 22, Anion Gap 7, Blood Urea Nitrogen 8, Creatinine 0.62, Estimat Glomerular Filtration Rate 89, BUN/Creatinine Ratio 13, Glucose Level 118, Calcium Level 7.9, Magnesium Level 1.5 Imaging: Reviewed Imaging Report Discussion & Recommendations Discharge Planning: <30 minutes discharge planning Cellulitis Improved with IV abx U/s without abscess Transition to oral antibiotics - doxycycline and augmentin Oral pain control - lortab Pt will f/u with PCP later this week Discussed she should return to ER with worsening symptoms HTN NIDDMII Restless leg syndrome HLD Continue home meds Discharge Home Medications: Active Scripts Active Doxycycline Hyclate 100 Mg Tablet 100 Mg PO BID WITH MEALS 10 Days Amox Tr-K Clv 875-125 mg Tab (Amoxicillin/Potassium Clav) 875 Mg-125 Mg Tablet 875 Mg PO BID WITH MEALS 10 Days Reported Metformin HCl ER (Metformin HCl) 500 Mg Tab.er.24h 500 Mg PO DAILY Benazepril HCl 20 Mg Tablet 20 Mg PO DAILY Omeprazole 20 Mg Capsule.dr 20 Mg PO DAILY Atorvastatin Calcium 40 Mg Tablet 40 Mg PO DAILY Amlodipine Besylate 5 Mg Tablet 5 Mg PO DAILY Ropinirole HCl 0.5 Mg Tablet 0.5 Mg PO HS Instructions to patient/family Please see electronic discharge instructions given to patient. Copy Copies To 1: LUCIANO FITZGERALD JARIN M MD 02/07/23 1729: Diagnosis/Chief Complaint Discharge Time: 15:00 Discharge Summary Discharge Physical Exam Allergies: Coded Allergies: Sulfa (Sulfonamide Antibiotics) (Unverified Allergy, Unknown, 01/22/15) Hospital Course Janice Liang is an 82 year old female who was admitted with severe sepsis due to cellulitis. She was started on IV antibiotics. Her cellulitis continued to spread and evolve. Surgery was consulted. An ultrasound showed no evidence of abscess. Her symptoms improved. She was transitioned to oral antibiotics. She will complete a course of Doxycycline and Augmentin. She should follow up with Dr. Fitzgerald later this week. She was discharged home in stable condition. Imaging: Reviewed Imaging Films, Reviewed Imaging Report Discussion & Recommendations Discharge Planning: <30 minutes discharge planning Copy Copies To 1: LUCIANO FITZGERALD DO Supervisory-Addendum Brief Verification & Attestation Participated in pt care: history, MDM, physical Personally performed: exam, history, MDM, supervision of care Care discussed with: Medical Student Procedures: n/a A medical student performed and documented this service in my presence. I reviewed and verified all information documented by the medical student and made modifications to such information, when appropriate. I personally performed the physical exam and medical decision making. Problem Qualifiers (1) Cellulitis: Site of cellulitis of extremity: upper extremity Laterality: left PHYLICIA TYLER February 07, 2023 11:59 MONA REYES MD February 07, 2023 17:29
--- NOTE | 2023-02-07 12:29 | Progress Note ---
Subjective Date Seen by a Provider: February 07, 2023 Time Seen by a Provider: 12:00 Subjective/Events-last exam Patient seen with Dr. Smith. Patient reports redness/erythema of left upper extremity improved. Pain controlled with hydrocodone. Focused Exam Lactate Level 02/04/23 18:00: Lactic Acid Level 3.38*H 02/04/23 20:00: Lactic Acid Level 1.55 Objective Exam Vital Signs Date Time Temp Pulse Resp B/P (MAP) Pulse Ox O2 Delivery O2 Flow Rate FiO2 02/07/23 08:30 Room Air 02/07/23 07:18 36.3 67 18 127/64 (85) 94 Room Air 02/06/23 23:01 36.8 71 20 107/57 (74) 93 Room Air 02/06/23 21:25 36.7 02/06/23 19:28 38.0 99 20 130/74 (92) 92 Room Air 02/06/23 19:25 Room Air 02/06/23 16:14 36.8 79 17 127/73 (91) 93 Room Air I & O 02/07/23 07:00 Intake Total 2680 ml Output Total 500 ml Balance 2180 ml Capillary Refill : Less Than 3 Seconds General Appearance: No Apparent Distress, WD/WN Neck: Normal Inspection, Supple Respiratory: No Accessory Muscle Use, No Respiratory Distress Gastrointestinal: normal bowel sounds, non tender, soft Extremity: Normal Range of Motion, Other (Left posterior forearm redness/erythema but continues to improve. Mild edema and tender to palpation.) Neurologic/Psychiatric: Alert, Oriented x3 Skin: Normal Color, Warm/Dry Results Lab Laboratory Tests 02/07/23 05:08: White Blood Count 9.8, Red Blood Count 3.63L, Hemoglobin 11.2L, Hematocrit 34L, Mean Corpuscular Volume 93, Mean Corpuscular Hemoglobin 31, Mean Corpuscular Hemoglobin Concent 33, Red Cell Distribution Width 13.8, Platelet Count 267, Mean Platelet Volume 9.7, Sodium Level 137, Potassium Level 3.5L, Chloride Level 108H, Carbon Dioxide Level 22, Anion Gap 7, Blood Urea Nitrogen 8, Creatinine 0.62, Estimat Glomerular Filtration Rate 89, BUN/Creatinine Ratio 13, Glucose Level 118H, Calcium Level 7.9L, Magnesium Level 1.5L Microbiology 02/04/23 Blood Culture - Preliminary, Resulted No growth Assessment/Plan Assessment/Plan Assess & Plan/Chief Complaint An 82 year old female with cellulitis of the left upper extremity VSS U/S of left forearm done with no abscess identified WBC 9.8 Ok to NE home with abx and pain meds as needed ADRIANA SELBY EMERGENCY RESPONSE COORDINATOR February 07, 2023 12:29
[2023-02-07 15:06] VITALS: BP 127/64
== END 2023-02-07 15:00 | disposition home or self-care (01) ==
LOC: EDUNIT# 16:53 → ER 16:55 → 4TH 19:16 → UNDOADMOB 19:16 → 4TH 19:30 → UNDODISOB 02-07 15:00
PROVIDERS: ADMIT Family Medicine; ATTEND Internal Medicine
DX: A41.9 Sepsis, unspecified organism (principal); L03.114 Cellulitis of left upper limb; I10 Essential (primary) hypertension; E11.9 Type 2 diabetes mellitus without complications; E78.5 Hyperlipidemia, unspecified; G25.81 Restless legs syndrome; R79.89 Other specified abnormal findings of blood chemistry; E87.20 Acidosis, unspecified; E87.6 Hypokalemia
CPT/HCPCS: 73090; 76881; 80048 ×2; 80053 ×2; 80202; 83036; 83605; 83735 ×2; 85007; 85025; 85027 ×3; 85610; 85730; 86141; 87040; 96366 ×2; 96372 ×2; 96375; 96376 ×4; 99284; G0378; 36415